=== PATIENT | male | born 1945 | race Caucasian/White ===

== ENCOUNTER 2018-02-19 09:22 | Day surgery (SDC) | payer MEDICARE, BC ==
[2018-02-19] MEDS: Polymyxin B/Trimethoprim 10 ML Bottle EYERT SCH ×4 (09:47→11:34)
[2018-02-19] MEDS: Brimonidine 0.2% Ophth Soln 5 ML Bottle EYERT SCH ×4 (09:53→11:34)
[2018-02-19] MEDS: Phenylephrine 2.5% Ophth Soln 2 ML Bot EYERT SCH ×6 (09:58→11:13)
[2018-02-19] MEDS: Tropicamide 1% Ophth Soln 3 ML Bottle EYERT SCH ×4 (10:04→10:55)
--- NOTE | 2018-02-19 10:12 | PCM.PREANE ---
Preanesthetic Assessment - Procedure Proposed Procedure: cataract right - Anesthesia/Transfusion/Family Hx Anesthesia History: Prior Anesthesia Without Reaction Family History of Anesthesia Reaction: No Transfusion History: No Prior Transfusion(s) - Review of Systems General: No Symptoms Pulmonary: No Symptoms Cardiovascular: No Symptoms Gastrointestinal: No Symptoms, Other (shingles for 8 years on and off) Neurological: No Symptoms Other: Reports: Diabetes, Sinus Problem, Depression - Physical Assessment NPO Status Date: 02/18/18 NPO Status Time: 22:00 O2 Sat by Pulse Oximetry: 94 Respiratory Rate: 16 Vital Signs: Last Vital Signs Temp 97.3 F 02/19/18 09:37 Pulse 73 02/19/18 09:37 Resp 16 02/19/18 09:37 BP 135/75 02/19/18 09:37 Pulse Ox 94 L 02/19/18 09:37 Height: 5 ft 10 in Weight: 108.862 kg ASA Class: 2 Mental Status: Alert & Oriented x3 Airway Class: Mallampati = 1 Dentition: Reports: Broken Tooth/Teeth, Missing Tooth/Teeth Thyro-Mental Finger Breadths: 3 Mouth Opening Finger Breadths: 3 ROM/Head Extension: Full Lungs: Clear to Auscultation, Normal Respiratory Effort Cardiovascular: Regular Rate, Regular Rhythm - Allergies Allergies/Adverse Reactions: Allergies Allergy/AdvReac Type Severity Reaction Status Date / Time metformin Allergy Cannot Verified 02/18/18 09:27 Remember morphine Allergy Cannot Verified 02/18/18 09:27 Remember - Blood Blood Available: No - Acknowledgements Anesthesia Type Planned: MAC Pt an Appropriate Candidate for the Planned Anesthesia: Yes Alternatives and Risks of Anesthesia Discussed w Pt/Guardian: Yes Pt/Guardian Understands and Agrees with Anesthesia Plan: Yes PreAnesthesia Questionnaire HEENT History: Reports: Cataract, Hard of Hearing Respiratory History: Reports: None Gastrointestinal History: Reports: GERD Musculoskeletal History: Reports: Arthritis Endocrine/Metabolic History: Reports: Diabetes, Type II Oncologic (Cancer) History: Reports: None - Past Surgical History GI Surgical History: Reports: Hernia, Inguinal, Other (See Below) (colon resection) Musculoskeletal Surgical History: Reports: Arthroscopic Knee, Knee Replacement, Shoulder Replacement, Other (See Below) (right wrist) - SUBSTANCE USE Smoking Status *Q: Never Smoker Tobacco Use Within Last Twelve Months: No Second Hand Smoke Exposure: No Days Per Week of Alcohol Use: 0 Recreational Drug Use History: No - HOME MEDS Home Medications: Home Meds Cholecalciferol (Vitamin D3) [Vitamin D3] 1,000 unit PO QAM 02/18/18 [History] Omeprazole 20 mg PO QAM 02/18/18 [History] glipiZIDE [Glipizide Xl] 10 mg PO QAM 02/18/18 [History] - CURRENT (IN HOUSE) MEDS Current Meds: Current Medications Brimonidine Tartrate (Alphagan 0.2% Ophth Soln) 0 ml EYERT ASDIRECTED NOMAN Stop: 02/19/18 19:00 Last Admin: 02/19/18 09:53 Dose: 1 drop Cefuroxime Sodium (Zinacef) 0 mg EYERT ASDIRECTED NOMAN Stop: 02/19/18 19:00 Lidocaine HCl (Xylocaine-Mpf 1%) 0 ml INJECT ASDIRECTED NOMAN Stop: 02/19/18 19:00 Phenylephrine HCl (Miguel-Synephrine 2.5% Ophth Soln) 0 ml EYERT ASDIRECTED NOMAN Stop: 02/19/18 19:00 Last Admin: 02/19/18 09:58 Dose: 1 drop Pilocarpine HCl (Pilocar 4% Ophth Soln) 0 ml EYERT ASDIRECTED NOMAN Stop: 02/19/18 19:00 Polymyxin/Trimethoprim Sulfate (Polytrim Ophth Soln) 0 ml EYERT ASDIRECTED NOMAN Stop: 02/19/18 19:00 Last Admin: 02/19/18 09:47 Dose: 1 drop Tetracaine HCl (Tetracaine 0.5% Steri-Unit Elva) 0 ml EYERT ASDIRECTED NOMAN Stop: 02/19/18 19:00 Tropicamide (Mydriacyl 1% Ophth Soln) 0 ml EYERT ASDIRECTED NOMAN Stop: 02/19/18 19:00 Last Admin: 02/19/18 10:04 Dose: 1 drop
[2018-02-19] MEDS: Tetracaine HCl/PF 0.5% 4 ML Bottle EYERT SCH ×4 (10:17→11:20)
[2018-02-19] MEDS: Lidocaine 1% PF 2 ML SDV INJECT SCH ×2 (11:03→11:20)
[2018-02-19] MEDS: Cefuroxime 10 MG/ML SYRINGE EYERT SCH ×2 (11:04→11:33)
[2018-02-19] MEDS: Pilocarpine 4% Ophth Soln 15 ML Bot EYERT SCH ×2 (11:04→11:34)
--- NOTE | 2018-02-19 11:36 | PCM48HPAN ---
Post Anesthesia Note - EVALUATION WITHIN 48HRS OF ANESTHETIC Vital Signs in Normal Range: Yes Patient Participated in Evaluation: Yes Respiratory Function Stable: Yes Airway Patent: Yes Cardiovascular Function Stable: Yes Hydration Status Stable: Yes Pain Control Satisfactory: Yes Nausea and Vomiting Control Satisfactory: Yes Mental Status Recovered: Yes Pulse Rate: 71 SaO2: 98 Resp Rate: 16 Temperature: 36 C Blood Pressure: 132/71
== END 2018-02-19 11:42 | disposition home or self-care (01) ==
LOC: JD.SDS 09:22
PROVIDERS: ATTEND Ophthalmology
DX: E11.36 Type 2 diabetes mellitus with diabetic cataract (principal); H25.813 Combined forms of age-related cataract, bilateral; H21.81 Floppy iris syndrome; H21.42 Pupillary membranes, left eye; I10 Essential (primary) hypertension; K21.9 Gastro-esophageal reflux disease without esophagitis; H18.231 Secondary corneal edema, right eye; D31.32 Benign neoplasm of left choroid; F32.9 Major depressive disorder, single episode, unspecified; H02.834 Dermatochalasis of left upper eyelid; Z79.84 Long term (current) use of oral hypoglycemic drugs; Z79.899 Other long term (current) drug therapy; Z88.8 Allergy status to other drugs, medicaments and biological substances; Z88.5 Allergy status to narcotic agent
CPT/HCPCS: 66982; 82962; C1780; J0697; J2001; A9270-GY

== ENCOUNTER 2021-05-31 10:44 | Emergency (ER) | payer MEDICARE, OTHER ==
--- NOTE | 2021-05-31 10:54 | EDM.PDOC ---
ED HPI GENERAL MEDICAL PROBLEM - General Chief Complaint: Chest Pain Stated Complaint: CHEST PAIN Time Seen by Provider: 05/31/21 10:52 Source of Information: Reports: Patient, RN Notes Reviewed - History of Present Illness INITIAL COMMENTS - FREE TEXT/NARRATIVE: 76 yr old male comes in with chest pain present off and on for about a month but more frequent and persistent the past 4 days. L ant chest mild ache without radiation. Has not been ill with cough, fever, chills, nausea or vomiting. Type 2 diabetic, has not been checking sugars. Has had some dizziness, lightheadedness and some dyspnea with exertion. - Related Data Allergies Allergy/AdvReac Type Severity Reaction Status Date / Time metformin Allergy Severe Cannot Verified 05/31/21 10:52 Remember morphine Allergy Severe Cannot Verified 05/31/21 10:52 Remember Home Meds: Home Meds Cholecalciferol (Vitamin D3) [Vitamin D3] 1,000 unit PO QAM 02/18/18 [History] Omeprazole 20 mg PO QAM 02/18/18 [History] Losartan Potassium 25 mg PO DAILY 05/31/21 [History] Magnesium 300 mg PO DAILY 05/31/21 [History] Pioglitazone HCl 30 mg PO DAILY 05/31/21 [History] Triamcinolone Acetonide [Triamcinolone Acetonide 0.1% Crm] 1 dose TOP BEDTIME 05/31/21 [History] glipiZIDE [Glipizide ER] 20 mg PO DAILY 05/31/21 [History] Past Medical History HEENT History: Reports: Cataract, Hard of Hearing Respiratory History: Reports: None Gastrointestinal History: Reports: GERD Musculoskeletal History: Reports: Arthritis Endocrine/Metabolic History: Reports: Diabetes, Type II Oncologic (Cancer) History: Reports: None - Past Surgical History GI Surgical History: Reports: Hernia, Inguinal, Other (See Below) (colon resection) Musculoskeletal Surgical History: Reports: Arthroscopic Knee, Knee Replacement, Shoulder Replacement, Other (See Below) (right wrist) ED ROS GENERAL - Review of Systems Review Of Systems: See Below Constitutional: Denies: Fever, Chills, Diaphoresis HEENT: Reports: No Symptoms Respiratory: Reports: Shortness of Breath. Denies: Cough Cardiovascular: Reports: Chest Pain Endocrine: Reports: Fatigue GI/Abdominal: Denies: Abdominal Pain, Diarrhea, Nausea, Vomiting Musculoskeletal: Denies: Shoulder Pain, Arm Pain Skin: Reports: No Symptoms Neurological: Reports: Dizziness. Denies: Trouble Speaking, Difficulty Walking, Weakness ED EXAM, NEURO - Physical Exam Exam: See Below General Appearance: Alert, No Apparent Distress Head Exam: Atraumatic Neck: Supple Respiratory/Chest: No Respiratory Distress, Lungs Clear, Normal Breath Sounds, Other (Mild tenderness L sternal border). No: Rhonchi, Wheezing Cardiovascular: Regular Rate, Rhythm GI/Abdominal: Soft, Non-Tender, Distended (mild) Neurological: No Motor/Sensory Deficits, Oriented x 3 Extremities: No: Pedal Edema, Leg Pain, Increased Warmth, Redness Skin Exam: Warm, Dry, Normal Color #1 Interpretation EKG Date: 05/31/21 Rhythm: NSR Rate (Beats/Min): 78 [place]: Normal P-Wave: Present QRS: Other (q waves lead III) ST-T: Normal QT: Normal Course - Vital Signs Last Recorded V/S: Last Vital Signs Temp 97.8 F 05/31/21 10:48 Pulse 81 05/31/21 10:48 Resp 18 05/31/21 10:48 BP 139/76 05/31/21 10:48 Pulse Ox 93 L 05/31/21 10:48 - Orders/Labs/Meds Labs: Laboratory Tests 05/31/21 05/31/21 05/31/21 Range/Units 10:54 10:54 10:54 WBC 6.87 (4.23-9.07) K/mm3 RBC 4.33 L (4.63-6.08) M/mm3 Hgb 13.8 (13.7-17.5) gm/dl Hct 42.9 (40.1-51.0) % MCV 99.1 H (79.0-92.2) fl MCH 31.9 (25.7-32.2) pg MCHC 32.2 (32.2-35.5) g/dl RDW Std Deviation 49.4 H (35.1-43.9) fL Plt Count 248 (163-337) K/mm3 MPV 10.4 (9.4-12.3) fl Neut % (Auto) 65.8 (34.0-67.9) % Lymph % (Auto) 22.9 (21.8-53.1) % [place] % (Auto) 8.0 (5.3-12.2) % Eos % (Auto) 2.5 (0.8-7.0) Baso % (Auto) 0.4 (0.1-1.2) % Neut # (Auto) 4.52 (1.78-5.38) K/mm3 Lymph # (Auto) 1.57 (1.32-3.57) K/mm3 [place] # (Auto) 0.55 (0.30-0.82) K/mm3 Eos # (Auto) 0.17 (0.04-0.54) K/mm3 Baso # (Auto) 0.03 (0.01-0.08) K/mm3 Sodium 140 (136-145) mEq/L Potassium 4.3 (3.5-5.1) mEq/L Chloride 104 (98-107) mEq/L Carbon Dioxide 28 (21-32) mEq/L Anion Gap 12.3 (5-15) BUN 20 H (7-18) mg/dL Creatinine 1.7 H (0.7-1.3) mg/dL Est Cr Clr Drug Dosing 39.36 mL/min Estimated GFR (MDRD) 40 (>60) mL/min BUN/Creatinine Ratio 11.8 L (14-18) Glucose 207 H (70-99) mg/dL Calcium 8.9 (8.5-10.1) mg/dL Total Bilirubin 0.4 (0.2-1.0) mg/dL AST 28 (15-37) U/L ALT 37 (16-63) U/L Alkaline Phosphatase 75 (46-116) U/L Troponin I < 0.017 (0.00-0.056) ng/mL NT-Pro-B Natriuret Pep 164 H (0-125) pg/mL Total Protein 7.2 (6.4-8.2) g/dl Albumin 3.6 (3.4-5.0) g/dl Globulin 3.6 gm/dL Albumin/Globulin Ratio 1.0 (1-2) - Re-Assessments/Exams Free Text/Narrative Re-Assessment/Exam: 06/01/21 10:47 trop neg, glucose around 200. BNP is good, CXR nl. EKG does not show any acute changes. I am concerned that he is likely running high sugars, he certainly has cardiac risk as well. Discharge instr. as documented. 06/01/21 10:49 Departure - Departure Time of Disposition: 13:19 Disposition: Home, Self-Care 01 Condition: Fair Clinical Impression: Atypical chest pain, Palpitations, Dizziness, Hyperglycemia - Discharge Information Instructions: Hyperglycemia, [id number], Palpitations, [id number], Chest Wall Pain Referrals: Narcisa Tran, [employer] [Primary Care Provider] - Forms: ED Department Discharge Additional Instructions: 48 hour holter moniter. Watch and try lower carbohydrate intake as discussed. Find or get a new glucometer and check blood sugars 3 times daily and keep a record of that for your next clinic visit. See Narcisa at clinic in follow up in about 1 week, call for appointment. Bring record of your blood sugar readings with you. Return to ED as needed if symptoms worsening in any way.
--- NOTE | 2021-05-31 11:57 | CR ---
Chest: Portable view of the chest was obtained. Comparison: Prior chest x-ray of 04/15/20. Heart size and mediastinum are normal. Lungs are clear with no acute parenchymal change. Left shoulder surgery is noted. No acute osseous abnormality is seen. Impression: 1. Nothing acute is seen on portable chest x-ray. Diagnostic code #2
== END 2021-05-31 13:50 | disposition home or self-care (01) ==
LOC: JD.ED 10:44
DX: R07.89 Other chest pain (principal); E11.65 Type 2 diabetes mellitus with hyperglycemia; R00.2 Palpitations; R42 Dizziness and giddiness; K21.9 Gastro-esophageal reflux disease without esophagitis; M19.90 Unspecified osteoarthritis, unspecified site; Z88.8 Allergy status to other drugs, medicaments and biological substances; Z88.5 Allergy status to narcotic agent; Z79.84 Long term (current) use of oral hypoglycemic drugs; Z79.899 Other long term (current) drug therapy
CPT/HCPCS: 36415; 71045; 71045-26; 80053; 83880; 84484; 85025; 93005; 93225; 93226; 99285-25